=== PATIENT | male | born 1970 | race Asian ===

== ENCOUNTER 2019-09-27 17:52 | Emergency (ER) | payer OTHER ==
[~2019-09-27] VITALS: Ht 170.2 cm; Wt 117.0 kg
[2019-09-27 18:39] LABS: BASOPHILS # (AUTO) 0.1 X10'3 (0-0.2); EOSINOPHILS # (AUTO) 0.4 X10'3 (0-0.9); EOSINOPHILS % (AUTO) 4.2 % (0-6); HEMATOCRIT 41.1 % (42.0-52.0); HEMOGLOBIN 13.7 g/dl (14.0-17.9); LYMPHOCYTES % (AUTO) 22.3 % (21-51); MEAN CORPUSCULAR HEMOGLOBIN 29.8 PG (27.0-31.0); MEAN CORPUSCULAR HGB CONC 33.4 g/dL (33.0-36.5); MEAN CORPUSCULAR VOLUME 89.3 FL (78-98); MEAN PLATELET VOLUME 7.6 FL (7.4-10.4); MONOCYTES # (AUTO) 0.7 X10'3 (0-0.9); MONOCYTES % (AUTO) 7.4 % (2-12); NEUTROPHILS % (AUTO) 65.1 % (42-75); PLATELET COUNT 217 X10'3 (140-440); RED CELL DISTRIBUTION WIDTH 14.4 % (11.5-14.5); WHITE BLOOD COUNT 9.2 X10'3 (4.5-11.0)
[2019-09-27 18:50] LABS: ALANINE AMINOTRANSFERASE 42 U/L (12-78); ALBUMIN/GLOBULIN RATIO 1.1 (1.1-1.5); ALKALINE PHOSPHATASE 62 IU/L (46-116); ANION GAP 12 (8-16); ASPARTATE AMINO TRANSFERASE 22 U/L (10-37); BILIRUBIN,TOTAL 0.2 MG/DL (0.1-1.0); BLOOD UREA NITROGEN 12 MG/DL (7-18); BUN/CREATININE RATIO 9.2 (5.4-32.0); CHLORIDE 109 MMOL/L (99-107); CREATININE 1.31 MG/DL (0.60-1.10); GLUCOSE 122 MG/DL (70-104); LIPASE 155 U/L (73-393); POTASSIUM 4.1 MMOL/L (3.5-5.1); SODIUM 145 MMOL/L (135-145); TOTAL CARBON DIOXIDE 24.4 MMOL/L (24-32); TOTAL PROTEIN 7.7 G/DL (6.4-8.2); eGFR 58 ML/MIN
[2019-09-27] MEDS ORDERED: ondansetron/PF 4mg/2ml inj IV ONE (19:15)
[2019-09-27] MEDS ORDERED: morphine 4 MG/ML inj SYRINge IV ONE ×2 (19:15→21:30)
[2019-09-27 20:13] LABS: COLOR,URINE YELLOW (Yellow); GLUCOSE, URINE NEGATIVE (Neg); KETONES,URINE NEGATIVE (Neg); LEUKOCYTE ESTERASE ,URINE NEGATIVE (Neg); NITRITES, URINE NEGATIVE (Neg); OCCULT BLOOD,URINE LARGE (Neg); PROTEIN,URINE TRACE mg/dl (Neg); UROBILINOGEN,URINE 0.2 E.U/dL (0.2-1.0)
[2019-09-27] MEDS ORDERED: LORazepam 2 mg/ml vial IV ONE (20:20)
[2019-09-27] MEDS ORDERED: HYDROcodone/acetaminophen 10/325mg tab PO ONE (20:20)
[2019-09-27 20:22] LABS: CLARITY,URINE SLIGHTLY CLOUDY (Clear); UA COLLECTION TYPE URINAL
[2019-09-27 20:24] LABS: BACTERIA,URINE FEW /HPF (Neg); RBC,URINE 20-50 /HPF (0-2); SQUAMOUS EPITHELIAL CELL,UR FEW /LPF (FEW); WBC,URINE 0-4 /HPF (0-4); YEAST FEW /HPF (NEGATIVE)
[2019-09-27] MEDS ORDERED: HYDR-3965 PO (21:17)
[2019-09-27] MEDS ORDERED: FLO0.4C PO (21:17)
[2019-09-27 23:00] VITALS: BP 147/96
== END 2019-09-27 22:45 | disposition home or self-care (01) ==
LOC: ER 17:54
DX: N20.0 Calculus of kidney (principal)
CPT/HCPCS: 36415; 74176; 80053; 81001; 83690; 85025; 96374; 96375; 96376; 99284; J2060; J2270; J2405